=== PATIENT | female | born 2000 | race African-American/Black ===

== ENCOUNTER 2021-08-25 21:09 | Emergency (ER) | payer BC ==
[~2021-08-25] VITALS: Ht 157.5 cm; Wt 61.2 kg
== END 2021-08-26 01:20 ==
LOC: EMR PED 21:09 → ER 21:09 → EMR PED 23:44
DX: R53.81 Other malaise (principal); R53.83 Other fatigue; Z20.822 Contact with and (suspected) exposure to COVID-19